=== PATIENT | male | born 1970 | race Caucasian/White ===

== ENCOUNTER 2024-02-21 12:01 | Emergency (ER) | payer OTHER ==
[~2024-02-21] VITALS: Ht 172.7 cm; Wt 95.0 kg
[2024-02-21 12:47] VITALS: BP 141/84; PULSE 82; RESP 18; TEMP 98.7; O2SAT 98
[2024-02-21] MEDS: HYDROcodone-ACET 10/325MG TAB PO ONE (13:37)
[2024-02-21] MEDS ORDERED: IBUP-1456 PO (13:58)
[2024-02-21] MEDS ORDERED: PRED20TA2 PO (13:58)
== END 2024-02-21 13:57 | disposition home or self-care (01) ==
LOC: ER 12:01
DX: M16.11 Unilateral primary osteoarthritis, right hip (principal); G89.29 Other chronic pain; M25.551 Pain in right hip
CPT/HCPCS: 73502

== ENCOUNTER 2024-06-27 10:28 | Emergency (ER) | payer OTHER ==
[~2024-06-27] VITALS: Ht 175.3 cm; Wt 90.2 kg
[~2024-06-27 10:28] MED LIST: IBUP-1456 PO; MELO15TA29 PO; PRED20TA2 PO
[2024-06-27 11:44] VITALS: BP 140/86; PULSE 112; RESP 17; TEMP 98.2; O2SAT 96
[2024-06-27] MEDS ORDERED: NAPR-746 PO (12:01)
== END 2024-06-27 12:18 | disposition home or self-care (01) ==
LOC: ER 10:28
DX: M70.22 Olecranon bursitis, left elbow (principal); Z79.899 Other long term (current) drug therapy

== ENCOUNTER 2024-08-10 17:36 | Emergency (ER) | payer OTHER ==
[~2024-08-10] VITALS: Ht 175.3 cm; Wt 95.0 kg
[~2024-08-10 17:36] MED LIST changes: +NAPR-746 PO
[2024-08-10 17:43] VITALS: PULSE 86
[2024-08-10 18:23] VITALS: BP 160/98; RESP 16; TEMP 97.8; O2SAT 98
--- NOTE | 2024-08-10 19:19 | ED.PDOC ---
HPI Comments This is a 53-year-old male presents to the ED chief complaint status post fall laceration to top of his patient states he was walking in the [place] parking lot tripped and hit his head on the pavement. Complaining of laceration to top of his head. Reports negative LOC denies neck pain back pain or any other known injury. Chief Complaint: Head Injury Time Seen by MD: 18:00 Primary Care Provider: NONE Reviewed Notes: Nurses Notes, Medications, Allergies Allergies: Coded Allergies: NO KNOWN ALLERGIES (Unverified , 02/21/24) Home Meds Active Scripts Prednisone (Prednisone) 20 Mg Tab, 40 MG PO DAILY, #20 TAB Prov:JAMIN CORTES 06/27/24 Naproxen (Naproxen) 500 Mg Tab, 500 MG PO BID, #30 TAB Prov:JAMIN CORTES 06/27/24 Meloxicam (Meloxicam) 15 Mg Tab, 1 TAB PO DAILY for 30 Days, #30 TAB 0 Refills Prov:EDUARD SCHULTZ NP 06/09/24 Prednisone (Prednisone) 20 Mg Tab, 40 MG PO DAILY, #20 TAB Prov:JAMIN CORTES 02/21/24 Ibuprofen (Ibuprofen) 800 Mg Tab, 1 TAB PO TID, #30 TAB Prov:JAMIN CORTES 02/21/24 Information Source: Patient Mode of Arrival: EMS Complexity: Simple Laceration Length (cm): 2 Past Medical History PAST MEDICAL HISTORY: Denies Surgical History: Denies all surgeries Family History Family History: Reviewed,noncontributory to illness Social History Smoker: Non-Smoker Alcohol: Denies ETOH Use Drugs: Denies Drug Use Lives In: Home Constitutional: denies: chills, diaphoresis, fatigue, fever, malaise, sweats, weakness, others EENTM: denies: blurred vision, double vision, ear bleeding, ear discharge, ear drainage, ear pain, ear ringing, eye pain, eye redness, hearing loss, mouth pain, mouth swelling, nasal discharge, nose bleeding, nose congestion, nose pain, photophobia, tearing, throat pain, throat swelling, voice changes, others Respiratory: denies: cough, hemoptysis, orthopnea, SOB at rest, shortness of breath, SOB with excertion, stridor, wheezing, others Cardiovascular: denies: chest pain, dizzy spells, diaphoresis, Dyspnea on exertion, edema, irregular heart beat, left arm pain, lightheadedness, palp itations, PND, syncope, others Gastrointestinal: denies: abdomen distended, abdominal pain, blood streaked bowels, constipated, diarrhea, dysphagia, difficulty swallowing, hematemesis, melena, nausea, poor appetite, poor fluid intake, rectal bleeding, rectal pain, vomiting, others Genitourinary: denies: burning, dysuria, flank pain, frequency, hematuria, incontinence, penile discharge, penile sore, pain, testicle pain, testicle swelling, urgency, others Neurological: denies: dizziness, fainting, headache, left sided numbness, left sided weakness, numbness, paresthesia, pre-existing deficit, right sided numbness, right sided weakness, seizure, speech problems, tingling, tremors, weakness, others Musculoskeletal: denies: back pain, gout, joint pain, joint swelling, muscle pain, muscle stiffness, neck pain, others Integumetry: reports: laceration (Top of scalp); denies: bruises, change in color, change in hair/nails, dryness, lesions, lumps, rash, others Allergic/Immunocompromised: denies: Difficulty Healing, Frequent Infections, Hives, Itching, others Hematologic/Lymphatic: denies: anemia, blood clots, easy bleeding, easy bruising, swollen glands, others Endocrine: denies: excessive hunger, excessive sweating, excessive thirst, excessive urination, flushing, intolerance to cold, intolerance to heat, unexplained weight gain, unexplained weight loss, others Psychiatric: denies: anxiety, bipolar disorder, depression, hopeless, panic disorder, schizophrenia, sleepless, suicidal, others Physical Exam General Appearance: No Apparent Distress, Normal HEENT: Pharynx Normal Neck: Full Range of Motion, Non-Tender Respiratory: Lungs Clear, No Respiratory Distress, Normal Breath Sounds Cardiovascular: No Murmur, Normal Peripheral Pulses, Regular Rate/Rhythm Breast Exam: Deferred Gastrointestinal: Non Tender, Soft Genitalia: Deferred Pelvic: Deferred Rectal: Deferred Extremities: Normal inspection, Normal range of motion Musculoskeletal : Apperance: Normal Neurologic: Alert, carton marker machine II-XII nml as Tested, No Motor Deficits, Normal Affect, Normal Mood, No Sensory Deficits Cerebellar Function: Normal Reflexes: Normal Skin: Dry, Lacerations (2 cm full-thickness laceration to top of scalp. Bleeding controlled.), Normal Color, Warm Lymphatic: No Adenopathy Was a procedure done? Was a procedure done?: Yes Sedation Sedation?: No Informed consent obtained: Yes Laceration Repair : Location Top of head scalp Length 2 cm Anesthetic: Lidocaine, With epi Laceration Repair Prep: Saline, Betadine Laceration Repair Wound Comple: epidermis/dermis repair Laceration Repair: [place] (5) Informed consent obtained: Yes Risks, benefits, and alternati: Yes Notes Patient tolerated procedure well minimal blood loss laceration with good approximation. Differential diagnosis Generic Laceration: Laceration, [place]ulsion X-Ray, Labs, Meds, VS Vital Signs Date Time Temp Pulse Resp B/P (MAP) Pulse Ox O2 Delivery O2 Flow Rate FiO2 08/10/24 18:23 16 98 Room Air 08/10/24 18:23 97.8 16 160/98 (118) 98 97.8 08/10/24 17:43 97.8 86 16 160/98 (118) 98 X-Ray, Labs, Meds, VS Comment See procedure note. Staple removal within 7-10 days as discussed. Follow up with your PCP in 2-3 days as necessary. ER precautions given for uncontrolled bleeding and infection. Patient agrees with discharge plan of care. Time of 1ST Reevaluation: 19:18 Reevaluation 1ST: Improved Patient Education/Counseling: Diagnosis, Treatment, Prognosis, Need For Follow Up Family Education/Counseling: No Family Present Departure 1 Departure Time of Disposition: 19:18 Impression: Primary Impression: Laceration of scalp Qualified Codes: S01.01XA - Laceration without foreign body of scalp, initial encounter Disposition: HOME / SELF CARE / HOMELESS Condition: Stable Additional Instructions: Staple removed within 7-10 business days. Return to the ER for increasing pain, uncontrolled bleeding, or signs and symptoms of infection as discussed. Discharged With: Self Critical Care Note Critical Care Time?: No Stability Stability form required: ARNODL Lynn Aug 10, 2024 19:19
[2024-08-10] MEDS: TETANUS-DIPTH-ACEL PERTUSSIS 0.5ML SYR Tdap IM ONE (19:33)
== END 2024-08-10 19:37 | disposition home or self-care (01) ==
LOC: EDBD 17:36 → ER 17:36
DX: S01.01XA Laceration without foreign body of scalp, initial encounter (principal); Z79.899 Other long term (current) drug therapy; W01.0XXA Fall on same level from slipping, tripping and stumbling without subsequent striking against object, initial encounter; Y93.01 Activity, walking, marching and hiking; Y92.89 Other specified places as the place of occurrence of the external cause; Y99.8 Other external cause status
CPT/HCPCS: 12001; 90471; 90715

== ENCOUNTER 2024-08-28 16:32 | Emergency (ER) | payer SELFPAY ==
[~2024-08-28] VITALS: Ht 170.2 cm; Wt 100.0 kg
[2024-08-28 16:32] VITALS: BP 168/79; PULSE 92; RESP 18; O2SAT 97
--- NOTE | 2024-08-28 17:05 | ED.PDOC ---
History of Present Illness HPI Comments 53 y.o male presents to the ED via EMS for a chief complaint of a generalized headache s/p huffing a spray pain can earlier today. Patient reports at this time, pain has subsided, does not want any medication and wants to go home. No other complaint noted. Time Seen by MD: 17:02 Primary Care Provider: CAYLA Herrera Notes: Nurses Notes, Housekeeper Child Care Notes, Allergies Allergies: Coded Allergies: NO KNOWN ALLERGIES (Unverified , 02/21/24) Home Meds Active Scripts Prednisone (Prednisone) 20 Mg Tab, 40 MG PO DAILY, #20 TAB Prov:JAMIN CORTES 06/27/24 Naproxen (Naproxen) 500 Mg Tab, 500 MG PO BID, #30 TAB Prov:JAMIN CORTES 06/27/24 Meloxicam (Meloxicam) 15 Mg Tab, 1 TAB PO DAILY for 30 Days, #30 TAB 0 Refills Prov:EDUARD SCHULTZ LAUNDRY OPERATOR 06/09/24 Prednisone (Prednisone) 20 Mg Tab, 40 MG PO DAILY, #20 TAB Prov:JAMIN CORTES 02/21/24 Ibuprofen (Ibuprofen) 800 Mg Tab, 1 TAB PO TID, #30 TAB Prov:JAMIN CORTES 02/21/24 Information Source: Patient, Emergency Med Personnel Mode of Arrival: EMS Severity: Moderate Timing: Hours Duration: Minutes Prehospital treatment: 12 Lead EKG Past Medical History PAST MEDICAL HISTORY: Denies Surgical History: Denies all surgeries Family History Family History: Reviewed,noncontributory to illness Social History Smoker: Non-Smoker Alcohol: Denies ETOH Use Drugs: Other (Patient is a huffer.) Lives In: Home Constitutional: denies: chills, diaphoresis, fatigue, fever, malaise, sweats, weakness, others EENTM: denies: blurred vision, double vision, ear bleeding, ear discharge, ear drainage, ear pain, ear ringing, eye pain, eye redness, hearing loss, mouth pain, mouth swelling, nasal discharge, nose bleeding, nose congestion, nose pain, photophobia, tearing, throat pain, throat swelling, voice changes, others Respiratory: denies: cough, hemoptysis, orthopnea, SOB at rest, shortness of breath, SOB with excertion, stridor, wheezing, others Cardiovascular: denies: chest pain, dizzy spells, diaphoresis, Dyspnea on exertion, edema, irregular heart beat, left arm pain, lightheadedness, palpitations, PND, syncope, others Gastrointestinal: denies: abdomen distended, abdominal pain, blood streaked bowels, constipated, diarrhea, dysphagia, difficulty swallowing, hematemesis, melena, nausea, poor appetite, poor fluid intake, rectal bleeding, rectal pain, vomiting, others Genitourinary: denies: burning, dysuria, flank pain, frequency, hematuria, incontinence, penile discharge, penile sore, pain, testicle pain, testicle swelling, urgency, others Neurological: reports: headache; denies: dizziness, fainting, left sided numbness, left sided weakness, numbness, paresthesia, pre-existing deficit, right sided numbness, right sided weakness, seizure, speech problems, tingling, tremors, weakness, others Musculoskeletal: denies: back pain, gout, joint pain, joint swelling, muscle pain, muscle stiffness, neck pain, others Integumetry: denies: bruises, change in color, change in hair/nails, dryness, laceration, lesions, lumps, rash, wounds, others Allergic/Immunocompromised: denies: Difficulty Healing, Frequent Infections, Hives, Itching, others Hematologic/Lymphatic: denies: anemia, blood clots, easy bleeding, easy bruising, swollen glands, others Endocrine: denies: excessive hunger, excessive sweating, excessive thirst, excessive urination, flushing, intolerance to cold, intolerance to heat, unexplained weight gain, unexplained weight loss, others Psychiatric: denies: anxiety, bipolar disorder, depression, hopeless, panic disorder, schizophrenia, sleepless, suicidal, others All Other Systems: Reviewed and Negative Physical Exam General Appearance: No Apparent Distress (Patient states his headache is mostly resolved and asked to go home.), Normal HEENT: Head (Unremarkable cranial evaluation. No signs of trauma. No skull depressions or deformities.), Normal ENT Inspection, Pharynx Normal, TMs Normal Neck: Full Range of Motion, Non-Tender, Normal, Normal Inspection Respiratory: Chest Non-Tender, Lungs Clear, No Accessory Muscle Use, No Respiratory Distress, Normal Breath Sounds Cardiovascular: No Edema, No JVD, No Murmur, No Gallop, Normal Peripheral Pulses, Regular Rate/Rhythm Breast Exam: Deferred Gastrointestinal: No Organomegaly, Non Tender, No Pulsatile Mass, Normal Bowel Sounds, Soft Genitalia: Deferred Pelvic: Deferred Rectal: Deferred Extremities: No calf tenderness, Normal capillary refill, Normal inspection, Normal range of motion, Non-tender, No pedal edema Musculoskeletal : Apperance: Normal Neurologic: Alert, high risk case manager II-XII nml as Tested, No Motor Deficits, Normal Affect, Normal Mood, No Sensory Deficits Cerebellar Function: Normal Reflexes: Normal Skin: Dry, Normal Color, Warm Lymphatic: No Adenopathy Was a procedure done? Was a procedure done?: No Differential Dx Considerations may include: Migraine, illicit inhaled drug use X-Ray, Labs, Meds, VS Comment Patient's symptoms are resolved at time of evaluation. Patient will be discharged home. I spent 10 minutes discussing the severe medical side effects of drug use as well as advising narcotics anonymous follow up. Patient states he will attempt to establish help. Time of 1ST Reevaluation: 17:15 Reevaluation 1ST: Improved Consultation: PCP, Other (Drug rehab) Patient Education/Counseling: Diagnosis, Treatment Family Education/Counseling: Diagnosis, Treatment, No Family Present Departure 1 Departure Time of Disposition: 17:15 Impression: Primary Impression: Inhales drugs Additional Impression: Headache Disposition: HOME / SELF CARE / HOMELESS Condition: Stable Additional Instructions: Patient has been advised to follow up with drug rehab for assistance in stopping inhaled drug use. Discharged With: Self, Friend Critical Care Note Critical Care Time?: No Stability Stability form required: No I personally scribed for PELON HOFFMANN PAC ([email or web address]) on 08/28/24 at 17:05. Electronically submitted by Joanna Santiago ([facility]). PELON HOFFMANN PAC Aug 28, 2024 17:05
== END 2024-08-28 19:14 | disposition home or self-care (01) ==
LOC: EDBD 16:32 → ER 16:32
DX: R51.9 Headache, unspecified (principal); F15.90 Other stimulant use, unspecified, uncomplicated; Z79.1 Long term (current) use of non-steroidal anti-inflammatories (NSAID); Z79.52 Long term (current) use of systemic steroids; Z79.899 Other long term (current) drug therapy

== ENCOUNTER 2024-10-26 16:18 | Emergency (ER) | payer SELFPAY ==
[~2024-10-26] VITALS: Ht 175.3 cm; Wt 86.3 kg
[2024-10-26 16:25] VITALS: BP 136/75; PULSE 108; RESP 18; O2SAT 98
--- NOTE | 2024-10-26 18:59 | ED.PDOC ---
Altered Mental Status HPI Comments 53 y.o male presents to the ED via EMS for an evaluation of inhalation. Patient reports inhaling a whole can of air dust today, states he has been trying to quit inhaling due to having headaches afterwards. Patient reports after inhaling a can a couple days ago, he fell backwards and hit the back of his head. No l oss of consciousness. Per EMS triage notes, patient was found altered down in a ferrari. Patient denies any nausea, vomiting, dizziness, chest pain or SOB. No other information provided. Chief Complaint: Inhalation Time Seen by MD: 17:58 Primary Care Provider: UNKNOWN Reviewed Notes: Nurses Notes, Outreach Specialist Notes, Medications, Allergies Allergies: Coded Allergies: NO KNOWN ALLERGIES (Unverified , 02/21/24) Home Meds Active Scripts Prednisone (Prednisone) 20 Mg Tab, 40 MG PO DAILY, #20 TAB Prov:JAMIN CORTES 06/27/24 Naproxen (Naproxen) 500 Mg Tab, 500 MG PO BID, #30 TAB Prov:JAMIN CORTES 06/27/24 Meloxicam (Meloxicam) 15 Mg Tab, 1 TAB PO DAILY for 30 Days, #30 TAB 0 Refills Prov:EDUARD SCHULTZ NP 06/09/24 Prednisone (Prednisone) 20 Mg Tab, 40 MG PO DAILY, #20 TAB Prov:JAMIN CORTES 02/21/24 Ibuprofen (Ibuprofen) 800 Mg Tab, 1 TAB PO TID, #30 TAB Prov:JAMIN CORTES 02/21/24 Information Source: Patient, Emergency Med Personnel Mode of Arrival: EMS Severity: Moderate Timing: Hours Duration: Since onset Quality: Decreased Alertness Recent: None Associated Signs and Symptoms: Headache Past Medical History PAST MEDICAL HISTORY: Denies Surgical History: Denies all surgeries Family History Family History: Reviewed,noncontributory to illness Social History Smoker: Non-Smoker Alcohol: Denies ETOH Use Drugs: Other Lives In: Home Constitutional: denies: chills, diaphoresis, fatigue, fever, malaise, sweats, weakness, others EENTM: denies: blurred vision, double vision, ear bleeding, ear discharge, ear drainage, ear pain, ear ringing, eye pain, eye redness, hearing loss, mouth pain, mouth swelling, nasal discharge, nose bleeding, nose congestion, nose pain, photophobia, tearing, throat pain, throat swelling, voice changes, others Respiratory: denies: cough, hemoptysis, orthopnea, SOB at rest, shortness of breath, SOB with excertion, stridor, wheezing, others Cardiovascular: denies: chest pain, dizzy spells, diaphoresis, Dyspnea on exertion, edema, irregular heart beat, left arm pain, lightheadedness, palpitations, PND, syncope, others Gastrointestinal: denies: abdomen distended, abdominal pain, blood streaked bowels, constipated, diarrhea, dysphagia, difficulty swallowing, hematemesis, melena, nausea, poor appetite, poor fluid intake, rectal bleeding, rectal pain, vomiting, others Genitourinary: denies: burning, dysuria, flank pain, frequency, hematuria, incontinence, penile discharge, penile sore, pain, testicle pain, testicle swelling, urgency, others Neurological: reports: headache; denies: dizziness, fainting, left sided numbness, left sided weakness, numbness, paresthesia, pre-existing deficit, right sided numbness, right sided weakness, seizure, speech problems, tingling, tremors, weakness, others Musculoskeletal: denies: back pain, gout, joint pain, joint swelling, muscle pain, muscle stiffness, neck pain, others Integumetry: denies: bruises, change in color, change in hair/nails, dryness, laceration, lesions, lumps, rash, wounds, others Allergic/Immunocompromised: denies: Difficulty Healing, Frequent Infections, Hives, Itching, others Hematologic/Lymphatic: denies: anemia, blood clots, easy bleeding, easy bruising, swollen glands, others Endocrine: denies: excessive hunger, excessive sweating, excessive thirst, excessive urination, flushing, intolerance to cold, intolerance to heat, u nexplained weight gain, unexplained weight loss, others Psychiatric: denies: anxiety, bipolar disorder, depression, hopeless, panic disorder, schizophrenia, sleepless, suicidal, others All Other Systems: Reviewed and Negative Physical Exam General Appearance: No Apparent Distress, Normal HEENT: Normal ENT Inspection, Pharynx Normal, TMs Normal, Other (Small hematoma to the occipital scalp, no open wounds, no significant tenderness to palpation) Neck: Full Range of Motion, Non-Tender, Normal, Normal Inspection Respiratory: Chest Non-Tender, Lungs Clear, No Accessory Muscle Use, No Respiratory Distress, Normal Breath Sounds Cardiovascular: No Edema, No JVD, No Murmur, No Gallop, Normal Peripheral Pulses, Regular Rate/Rhythm Breast Exam: Deferred Gastrointestinal: No Organomegaly, Non Tender, No Pulsatile Mass, Normal Bowel Sounds, Soft Genitalia: Deferred Pelvic: Deferred Rectal: Deferred Extremities: No calf tenderness, Normal capillary refill, Normal inspection, Normal range of motion, Non-tender, No pedal edema Musculoskeletal : Apperance: Normal Neurologic: Alert, quality control representative II-XII nml as Tested, No Motor Deficits, Normal Affect, Normal Mood, No Sensory Deficits Cerebellar Function: Normal Reflexes: Normal Skin: Dry, Normal Color, Warm Lymphatic: No Adenopathy Was a procedure done? Was a procedure done?: No Differential Diagnosis (ALOC) Differential Diagnosis: Dehydration, Closed Head Injury, Drug Overdose, ETOH Intoxication X-Ray, Labs, Meds, VS Vital Signs Date Time Temp Pulse Resp B/P (MAP) Pulse Ox O2 Delivery O2 Flow Rate FiO2 10/26/24 16:25 97.9 108 18 136/75 (95) 98 X-Ray, Labs, Meds, VS Comment 53-year-old male here today requesting evaluation of his head hematoma due to a fall two days ago in the setting of huffing. No other complaints at this time. Patient requesting a aspirin pill for his pain but otherwise does not want to do any blood work or CT scans of his head. Patient states that his friend is here to pick him up and he just wants his aspirin to go. I informed the patient that I would want to do a CT scan of his head to ensure that there was no evidence of bleed prior to giving him a medication like aspirin however I would be okay to give him Tylenol the patient refused and stated he would prefer to leave instead. Patient's signed AMA and ambulated out of the ER in no distress. Time of 1ST Reevaluation: 18:59 Reevaluation 1ST: Unchanged Patient Education/Counseling: Diagnosis, Treatment, Prognosis Family Education/Counseling: No Family Present Departure 1 Departure Time of Disposition: 19:13 Impression: Primary Impression: Inhales drugs Additional Impressions: Headache Traumatic hematoma of head Disposition: LEFT AGAINST MEDICAL ADVICE Condition: Guarded Critical Care Note Critical Care Time?: No Stability Stability form required: No I personally scribed for IMTIAZ MACIEL MD ([email or web address]) on 10/26/24 at 18:59. Electronically submitted by Joanna Santiago ([facility]). IMTIAZ MACIEL MD Oct 26, 2024 18:59
== END 2024-10-26 18:07 | disposition left against medical advice (07) ==
LOC: EDBD 16:18 → ER 16:28
DX: S00.83XA Contusion of other part of head, initial encounter (principal); X58.XXXA Exposure to other specified factors, initial encounter; Y93.89 Activity, other specified; Y92.89 Other specified places as the place of occurrence of the external cause; Y99.8 Other external cause status

== ENCOUNTER 2024-12-25 17:37 | Emergency (ER) | payer OTHER, MEDICAID ==
[~2024-12-25] VITALS: Ht 177.8 cm; Wt 91.0 kg
[2024-12-25 17:49] VITALS: BP 159/89; PULSE 100; TEMP 98.2
[2024-12-25 17:52] VITALS: RESP 20; O2SAT 94
--- NOTE | 2024-12-25 17:54 | ED.PDOC ---
History of Present Illness HPI Comments 54 y/o M, CTA presents to the ED for CC of inhalation. EMS reports, patient was seen by bystanders to be sniffing aerosol cans and acting disoriented. EMS comments, that they physical removed the aerosol can out of patients hand upon arrival to scene. Patient states, "I was just trying to get high". Patient denies suicidal ideation, homicidal ideation, auditory hallucinations, or visual hallucinations. Time Seen by MD: 17:50 Primary Care Provider: UNKNOWN Reviewed Notes: Nurses Notes, Manager Configuration Notes, Medications, Allergies Allergies: Coded Allergies: NO KNOWN ALLERGIES (Unverified , 02/21/24) Home Meds Active Scripts Prednisone (Prednisone) 20 Mg Tab, 40 MG PO DAILY, #20 TAB Prov:JAMIN CORTES 06/27/24 Naproxen (Naproxen) 500 Mg Tab, 500 MG PO BID, #30 TAB Prov:JAMIN CORTES 06/27/24 Meloxicam (Meloxicam) 15 Mg Tab, 1 TAB PO DAILY for 30 Days, #30 TAB 0 Refills Prov:EDUARD SCHULTZ NP 06/09/24 Prednisone (Prednisone) 20 Mg Tab, 40 MG PO DAILY, #20 TAB Prov:JAMIN CORTES 02/21/24 Ibuprofen (Ibuprofen) 800 Mg Tab, 1 TAB PO TID, #30 TAB Prov:JAMIN CORTES 02/21/24 Information Source: Patient, Emergency Med Personnel Mode of Arrival: EMS Severity: Mild Timing: Minutes Duration: Since onset Prehospital treatment: None Past Medical History PAST MEDICAL HISTORY: Denies Surgical History: Denies all surgeries Family History Family History: Reviewed,noncontributory to illness Social History Smoker: Non-Smoker Alcohol: Denies ETOH Use Drugs: Other Lives In: Home Constitutional: denies: chills, diaphoresis, fatigue, fever, malaise, sweats, weakness, others EENTM: denies: blurred vision, double vision, ear bleeding, ear discharge, ear drainage, ear pain, ear ringing, eye pain, eye redness, hearing loss, mouth pain, mouth swelling, nasal discharge, nose bleeding, nose congestion, nose pain, photophobia, tearing, throat pain, throat swelling, voice changes, others Respiratory: denies: cough, hemoptysis, orthopnea, SOB at rest, shortness of breath, SOB with excertion, stridor, wheezing, others Cardiovascular: denies: chest pain, dizzy spells, diaphoresis, Dyspnea on exertion, edema, irregular heart beat, left arm pain, lightheadedness, palpitations, PND, syncope, others Gastrointestinal: denies: abdomen distended, abdominal pain, blood streaked bowels, constipated, diarrhea, dysphagia, difficulty swallowing, hematemesis, melena, nausea, poor appetite, poor fluid intake, rectal bleeding, rectal pain, vomiting, others Genitourinary: denies: burning, dysuria, flank pain, frequency, hematuria, incontinence, penile discharge, penile sore, pain, testicle pain, testicle swelling, urgency, others Neurological: denies: dizziness, fainting, headache, left sided numbness, left sided weakness, numbness, paresthesia, pre-existing deficit, right sided numbness, right sided weakness, seizure, speech problems, tingling, tremors, weakness, others Musculoskeletal: denies: back pain, gout, joint pain, joint swelling, muscle pain, muscle stiffness, neck pain, others Integumetry: denies: bruises, change in color, change in hair/nails, dryness, laceration, lesions, lumps, rash, wounds, others Allergic/Immunocompromised: denies: Difficulty Healing, Frequent Infections, Hives, Itching, others Hematologic/Lymphatic: denies: anemia, blood clots, easy bleeding, easy bruising, swollen glands, others Endocrine: denies: excessive hunger, excessive sweating, excessive thirst, excessive urination, flushing, intolerance to cold, intolerance to heat, unexplained weight gain, unexplained weight loss, others Psychiatric: denies: anxiety, bipolar disorder, depression, hopeless, panic disorder, schizophrenia, sleepless, suicidal, others All Other Systems: Reviewed and Negative Physical Exam General Appearance: No Apparent Distress HEENT: Normal ENT Inspection, Pharynx Normal, TMs Normal Neck: Full Range of Motion, Non-Tender, Normal, Normal Inspection Respiratory: Chest Non-Tender, Lungs Clear, No Accessory Muscle Use, No Respiratory Distress, Normal Breath Sounds Cardiovascular: No Edema, No JVD, No Murmur, No Gallop, Normal Peripheral Pulses, Regular Rate/Rhythm Breast Exam: Deferred Gastrointestinal: No Organomegaly, Non Tender, No Pulsatile Mass, Normal Bowel Sounds, Soft Genitalia: Deferred Pelvic: Deferred Rectal: Deferred Extremities: No calf tenderness, Normal capillary refill, Normal inspection, Normal range of motion, Non-tender, No pedal edema Musculoskeletal : Apperance: Normal Neurologic: Alert, 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 Was a procedure done?: No Differential Dx Considerations may include: Generalized weakness, electrolyte imbalance, inhalation, substance abuse X-Ray, Labs, Meds, VS Vital Signs Date Time Temp Pulse Resp B/P (MAP) Pulse Ox O2 Delivery O2 Flow Rate FiO2 12/25/24 17:52 20 94 Room Air* 0 21 12/25/24 17:49 98.2 100 20 159/89 (112) 94 98.2 The patient states that he wants to leave upon arrival The patient called his in his came and picked him up. The patient was signed out AMA The patient's vital signs have remained stable The patient was not suicidal or homicidal at this time It seems that the patient was done this before We did give him some substance abuse counseling. Time of 1ST Reevaluation: 18:20 Reevaluation 1ST: Unchanged Patient Education/Counseling: Diagnosis, Treatment Family Education/Counseling: No Family Present Departure 1 Departure Time of Disposition: 18:01 Impression: Primary Impression: Inhales drugs Disposition: 07 LEFT AGAINST MEDICAL ADVICE Condition: Fair Critical Care Note Critical Care Time?: No Stability Stability form required: No Heart Score Heart Score: Heart Score Response (Comments) Value History N/A 0 EKG N/A 0 Age N/A 0 Risk Factors N/A 0 Troponin N/A 0 Total 0 I personally scribed for MARTI GIBBONS MD ([email or web address]) on 12/25/24 at 17:54. Electronically submitted by Shadia Sanchez ([email or web address]). MARTI GIBBONS MD Dec 25, 2024 17:54
--- NOTE | 2024-12-26 13:13 | ECG ---
[facility] Test Date: 2024-12-25 Test Time: 17:36:57 Pat Name: MIKHAIL DOVER Department: ED Room: Gender: M Legal Office Administrator: JOSÉ LUIS : 1970 Requested By: MARTI GIBBONS Order Number: [id number] Reading MD: Anton Park Measurements Intervals [place] Rate: 101 P: 35 ME: 148 QRS: -22 QRSD: 97 T: 2 QT: 350 QTc: 454 Interpretive Statements Sinus tachycardia Borderline left axis deviation Low voltage, precordial leads Abnormal R-wave progression, late transition Electronically Signed On 12-26-2024 18:49:46 PDT by Anton Park Please click the below link to view image of tracing.
== END 2024-12-25 17:54 | disposition left against medical advice (07) ==
LOC: ER 17:37 → EDBD 17:37 → ER 17:54
DX: F18.90 Inhalant use, unspecified, uncomplicated (principal); Z79.52 Long term (current) use of systemic steroids; Z79.1 Long term (current) use of non-steroidal anti-inflammatories (NSAID); Z79.899 Other long term (current) drug therapy
CPT/HCPCS: 93005

== ENCOUNTER 2025-03-18 21:40 | Emergency (ER) | payer OTHER, MEDICAID ==
[~2025-03-18] VITALS: Ht 177.8 cm; Wt 90.9 kg
[2025-03-18 21:50] VITALS: BP 135/71; PULSE 98; RESP 15; TEMP 98.2; O2SAT 96
--- NOTE | 2025-03-18 21:57 | ED.PDOC ---
HPI Comments This is a 54 year old male CAT presenting to the ED with chief complaint of laceration. EMS reports that the patient was found in front of a [employer] holding the back of his head, noting a 1cm laceration. EMS relays that the patient does not remember falling or hitting his head, just that it hurts. EMS states an employee at the [employer] came out to inform them that the patient has been buying aerosol cleaning sprays throughout the day, believing he has been inhaling them, possibly causing him to pass out and hit the back of his head. Patient does not admit to any inhaling of the sprays. Patient denies any dizziness, N/V, chest pain, back pain, or further lacerations. Chief Complaint: Head Injury Time Seen by MD: 21:53 Primary Care Provider: UNKNOWN Reviewed Notes: Nurses Notes, Press Brake Operator Notes, Medications, Allergies Allergies: Coded Allergies: NO KNOWN ALLERGIES (Unverified , 02/21/24) Home Meds Active Scripts Prednisone (Prednisone) 20 Mg Tab, 40 MG PO DAILY, #20 TAB Prov:JAMIN CORTES 06/27/24 Naproxen (Naproxen) 500 Mg Tab, 500 MG PO BID, #30 TAB Prov:JAMIN CORTES 06/27/24 Meloxicam (Meloxicam) 15 Mg Tab, 1 TAB PO DAILY for 30 Days, #30 TAB 0 Refills Prov:EDUARD SCHULTZ NP 06/09/24 Prednisone (Prednisone) 20 Mg Tab, 40 MG PO DAILY, #20 TAB Prov:JAMIN CORTES 02/21/24 Ibuprofen (Ibuprofen) 800 Mg Tab, 1 TAB PO TID, #30 TAB Prov:JAMIN CORTES 02/21/24 Information Source: Patient, Emergency Med Personnel Mode of Arrival: EMS Severity: Mild Severity of Laceration: Controlled Bleeding Complexity: Simple Timing: Hours Prehospital treatment: None Laceration Location: Head Mechanism: Fall Last Tetanus: Unknown Laceration Length (cm): 1 Skin Type: Linear Depth of Injury: SQ Tendon Injury: 0% Capillary Refill: < 3 seconds Tender: Mild Discharge: Serosanguinous Erythema: Localized to Wound Edges Past Medical History PAST MEDICAL HISTORY: Denies Surgical History: Denies all surgeries Family History Family History: Reviewed,noncontributory to illness Social History Smoker: Non-Smoker Alcohol: Denies ETOH Use Drugs: Other Lives In: Home Constitutional: denies: chills, diaphoresis, fatigue, fever, malaise, sweats, weakness, others EENTM: denies: blurred vision, double vision, ear bleeding, ear discharge, ear drainage, ear pain, ear ringing, eye pain, eye redness, hearing loss, mouth pain, mouth swelling, nasal discharge, nose bleeding, nose congestion, nose pain, photophobia, tearing, throat pain, throat swelling, voice changes, others Respiratory: denies: cough, hemoptysis, orthopnea, SOB at rest, shortness of breath, SOB with excertion, stridor, wheezing, others Cardiovascular: denies: chest pain, dizzy spells, diaphoresis, Dyspnea on exertion, edema, irregular heart beat, left arm pain, lightheadedness, palpitations, PND, syncope, others Gastrointestinal: denies: abdomen distended, abdominal pain, blood streaked bowels, constipated, diarrhea, dysphagia, difficulty swallowing, hematemesis, melena, nausea, poor appetite, poor fluid intake, rectal bleeding, rectal pain, vomiting, others Genitourinary: denies: burning, dysuria, flank pain, frequency, hematuria, incontinence, penile discharge, penile sore, pain, testicle pain, testicle swelling, urgency, others Neurological: denies: dizziness, fainting, headache, left sided numbness, left sided weakness, numbness, paresthesia, pre-existing deficit, right sided numbness, right sided weakness, seizure, speech problems, tingling, tremors, weakness, others Musculoskeletal: denies: back pain, gout, joint pain, joint swelling, muscle pain, muscle stiffness, neck pain, others Integumetry: reports: laceration; denies: bruises, change in color, change in hair/nails, dryness, lesions, lumps, rash, wounds, others Allergic/Immunocompromised: denies: Difficulty Healing, Frequent Infections, Hives, Itching, others Hematologic/Lymphatic: denies: anemia, blood clots, easy bleeding, easy bruising, swollen glands, others Endocrine: denies: excessive hunger, excessive sweating, excessive thirst, excessive urination, flushing, intolerance to cold, intolerance to heat, unexplained weight gain, unexplained weight loss, others Psychiatric: denies: anxiety, bipolar disorder, depression, hopeless, panic disorder, schizophrenia, sleepless, suicidal, others All Other Systems: Reviewed and Negative Physical Exam General Appearance: No Apparent Distress, Normal HEENT: Normal ENT Inspection, Pharynx Normal, TMs Normal Neck: Full Range of Motion, Non-Tender, Normal, Normal Inspection Respiratory: Chest Non-Tender, Lungs Clear, No Accessory Muscle Use, No Respiratory Distress, Normal Breath Sounds Cardiovascular: No Edema, No JVD, No Murmur, No Gallop, Normal Peripheral Pulses, Regular Rate/Rhythm Breast Exam: Deferred Gastrointestinal: No Organomegaly, Non Tender, No Pulsatile Mass, Normal Bowel Sounds, Soft Genitalia: Deferred Pelvic: Deferred Rectal: Deferred Extremities: No calf tenderness, Normal capillary refill, Normal inspection, Normal range of motion, Non-tender, No pedal edema Musculoskeletal : Apperance: Normal Neurologic: Alert, 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 Was a procedure done?: Yes Sedation Sedation?: No Laceration Repair : Location [place] of scalp Length 1cm Anesthetic: Nothing Laceration Repair Prep: Saline, Manual Scrub Laceration Repair Wound Comple: subcut tissue repair Laceration Repair: [place] (1) Informed consent obtained: Yes Risks, benefits, and alternati: Yes Differential diagnosis Generic Laceration: Laceration X-Ray, Labs, Meds, VS Vital Signs Date Time Temp Pulse Resp B/P (MAP) Pulse Ox O2 Delivery O2 Flow Rate FiO2 03/18/25 21:50 98.2 98 15 135/71 (92) 96 98.2 X-Ray, Labs, Meds, VS Comment Imaging: X-rays and CT scans were reviewed and interpreted by this provider, imaging shows no fractures and no pathological disease. Pending radiology review. Laboratory: Labs reviewed and interpreted by this provider. No significant abnormalities noted. Patient has prior medical visits reviewed. Med reconciliation performed Vital signs reviewed Time of 1ST Reevaluation: 22:53 Reevaluation 1ST: Improved Patient Education/Counseling: Diagnosis, Treatment, Need For Follow Up (Follow up with PCP in the next 2-4 days. Return to emergency department the next 7-10 days for staple removal.) Family Education/Counseling: No Family Present Departure 1 Departure Time of Disposition: 23:29 Impression: Primary Impression: Laceration of scalp Qualified Codes: S01.01XA - Laceration without foreign body of scalp, initial encounter Disposition: HOME / SELF CARE / HOMELESS Condition: Stable Discharged With: Self Critical Care Note Critical Care Time?: No Stability Stability form required: No Heart Score Heart Score: Heart Score Response (Comments) Value History N/A 0 EKG N/A 0 Age N/A 0 Risk Factors N/A 0 Troponin N/A 0 Total 0 I personally scribed for JAYNE GUARDADO ([email or web address]) on 03/18/25 at 21:57. Electronically submitted by Carl Foote ([email or web address]). JAYNE GUARDADO Mar 18, 2025 21:57
--- NOTE | 2025-03-18 23:19 | DVH ---
CT BRAIN WITHOUT CONTRAST HISTORY: fall TECHNIQUE: Axial scans were obtained from the skull base through the vertex without contrast. [place] l and coronal reformats were generated. One or more of the following radiation dose reduction technPerceptual Networks ues were used for this examination: automated exposure control, adjustment of the mA and/or kV accord ing to patient size, use of iterative reconstruction technique. COMPARISON: None FINDINGS: No acute intracranial hemorrhage or evidence of large vessel territorial infarction identified at thi s time. No midline shift. The basilar cisterns are patent. Tiny right maxillary sinus mucosal polyp versus retention cyst. The visualized paranasal sinuses and mastoid air cells are otherwise grossly clear. No displaced calvarial fracture is identified. Occipital scalp laceration with skin zi. IMPRESSION: No acute intracranial findings. Occipital scalp laceration.
== END 2025-03-18 23:31 | disposition home or self-care (01) ==
LOC: EDBD 21:40 → ER 21:44
DX: S01.01XA Laceration without foreign body of scalp, initial encounter (principal); R42 Dizziness and giddiness; W19.XXXA Unspecified fall, initial encounter; Y93.89 Activity, other specified; Y92.89 Other specified places as the place of occurrence of the external cause; Y99.8 Other external cause status
CPT/HCPCS: 12001; 70450

== ENCOUNTER 2025-03-23 14:02 | Emergency (ER) | payer OTHER, MEDICAID ==
[~2025-03-23] VITALS: Ht 177.8 cm; Wt 97.0 kg
[2025-03-23 14:36] VITALS: BP 126/76; PULSE 104; RESP 16; TEMP 98; O2SAT 94
--- NOTE | 2025-03-23 15:12 | ED.PDOC ---
History of Present Illness(SKN HPI Comments 54-year-old male presents with a chief complaint of suture (staple) removal. Patient reports that he was here 5 days ago and had zi placed. Patient had zi placed on the posterior occipital portion of his head. Chief Complaint: Suture Removal Time Seen by MD: 14:46 Primary Care Provider: UNKNOWN History of Present Illness: Nurses Notes, Medications, Allergies Allergies: Coded Allergies: NO KNOWN ALLERGIES (Unverified , 02/21/24) Home Meds Active Scripts Prednisone (Prednisone) 20 Mg Tab, 40 MG PO DAILY, #20 TAB Prov:JAMIN CORTES 06/27/24 Naproxen (Naproxen) 500 Mg Tab, 500 MG PO BID, #30 TAB Prov:JAMIN CORTES 06/27/24 Meloxicam (Meloxicam) 15 Mg Tab, 1 TAB PO DAILY for 30 Days, #30 TAB 0 Refills Prov:EDUARD SCHULTZ DISTRICT LOSS PREVENTION MANAGER 06/09/24 Prednisone (Prednisone) 20 Mg Tab, 40 MG PO DAILY, #20 TAB Prov:JAMIN CORTES 02/21/24 Ibuprofen (Ibuprofen) 800 Mg Tab, 1 TAB PO TID, #30 TAB Prov:JAMIN CORTES 02/21/24 Information Source: Patient Mode of Arrival: Ambulatory Severity: Moderate Timing: Days Duration: Since onset Prehospital treatment: None Location: Head Mechanism: Preceding Wound Wound Type: Abrasion Past Medical History PAST MEDICAL HISTORY: Denies Surgical History: Denies all surgeries Family History Family History: Reviewed,noncontributory to illness Social History Smoker: Non-Smoker Alcohol: Denies ETOH Use Drugs: Other Lives In: Home Constitutional: denies: chills, diaphoresis, fatigue, fever, malaise, sweats, weakness, others EENTM: denies: blurred vision, double vision, ear bleeding, ear discharge, ear drainage, ear pain, ear ringing, eye pain, eye redness, hearing loss, mouth pain, mouth swelling, nasal discharge, nose bleeding, nose congestion, nose pain, photophobia, tearing, throat pain, throat swelling, voice changes, others Respiratory: denies: cough, hemoptysis, orthopnea, SOB at rest, shortness of breath, SOB with excertion, stridor, wheezing, others Cardiovascular: denies: chest pain, dizzy spells, diaphoresis, Dyspnea on exertion, edema, irregular heart beat, left arm pain, lightheadedness, palpitations, PND, syncope, others Gastrointestinal: denies: abdomen distended, abdominal pain, blood streaked bowels, constipated, diarrhea, dysphagia, difficulty swallowing, hematemesis, melena, nausea, poor appetite, poor fluid intake, rectal bleeding, rectal pain, vomiting, others Genitourinary: denies: burning, dysuria, flank pain, frequency, hematuria, incontinence, penile discharge, penile sore, pain, testicle pain, testicle swelling, urgency, others Neurological: denies: dizziness, fainting, headache, left sided numbness, left sided weakness, numbness, paresthesia, pre-existing deficit, right sided numbness, right sided weakness, seizure, speech problems, tingling, tremors, weakness, others Musculoskeletal: denies: back pain, gout, joint pain, joint swelling, muscle pain, muscle stiffness, neck pain, others Integumetry: denies: bruises, change in color, change in hair/nails, dryness, laceration, lesions, lumps, rash, wounds, others Allergic/Immunocompromised: denies: Difficulty Healing, Frequent Infections, Hives, Itching, others Hematologic/Lymphatic: denies: anemia, blood clots, easy bleeding, easy bruising, swollen glands, others Endocrine: denies: excessive hunger, excessive sweating, excessive thirst, excessive urination, flushing, intolerance to cold, intolerance to heat, unexplained weight gain, unexplained weight loss, others Psychiatric: denies: anxiety, bipolar disorder, depression, hopeless, panic disorder, schizophrenia, sleepless, suicidal, others All Other Systems: Reviewed and Negative ( PER HPI) Physical Exam General Appearance: No Apparent Distress, Normal HEENT: Normal ENT Inspection, Pharynx Normal, TMs Normal Neck: Full Range of Motion, Non-Tender, Normal, Normal Inspection Respiratory: Chest Non-Tender, Lungs Clear, No Accessory Muscle Use, No Respiratory Distress, Normal Breath Sounds Cardiovascular: No Edema, No JVD, No Murmur, No Gallop, Normal Peripheral Pulses, Regular Rate/Rhythm Breast Exam: Deferred Gastrointestinal: No Organomegaly, Non Tender, No Pulsatile Mass, Normal Bowel Sounds, Soft Genitalia: Deferred Pelvic: Deferred Rectal: Deferred Extremities: No calf tenderness, Normal capillary refill, Normal inspection, Normal range of motion, Non-tender, No pedal edema Musculoskeletal : Apperance: Normal Neurologic: Alert, 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 Was a procedure done?: No Differential Diagnosis (INTG) Differential Diagnosis: Other X-Ray, Labs, Meds, VS Vital Signs Date Time Temp Pulse Resp B/P (MAP) Pulse Ox O2 Delivery O2 Flow Rate FiO2 03/23/25 14:36 98.0 104 16 126/76 (93) 94 98.0 X-Ray, Labs, Meds, VS Comment 54-year-old male presents for suture removal. No other complaint. After ROS physical examination there were no signs of infection. No signs of cellulitis. No signs of abscess formation. Alcohol swab used to clean area thoroughly. Used sterile suture removal kit to remove sutures. Clean, dry, intact. No discharge seen. Education provided to keep area clean and dry. If gets soiled, use soap and water to clean. Watch out for signs and symptoms of infection including fever, chills, yellow or green discharge, increased pain, swelling etc. Time of 1ST Reevaluation: 15:28 Reevaluation 1ST: Improved Patient Education/Counseling: Diagnosis, Treatment, Prognosis Family Education/Counseling: No Family Present SEPSIS Sepsis Screen Date sepsis recognized/suspect: Mar 23, 2025 Time Sepsis recognized/suspect: 1415 Recent Procedure: No On Antibiotic Therapy: No Respiratory Rate >20: No Heart Rate >90: Yes Temp<36 C (96.8 F) or >38.3 C: No SBP <90 or MAP <65 mmHG: No New Acute Mental Status Change: No Is the patient on CPAP, BIPAP,: No Vital Signs Date Time Temp Pulse Resp B/P (MAP) Pulse Ox O2 Delivery O2 Flow Rate FiO2 03/23/25 14:36 98.0 104 16 126/76 (93) 94 98.0 Departure 1 Departure Time of Disposition: 15:11 Impression: Primary Impression: Removal of staple Disposition: HOME / SELF CARE / HOMELESS Condition: Stable Critical Care Note Critical Care Time?: No Stability Stability form required: No Heart Score Heart Score: Heart Score Response (Comments) Value History N/A 0 EKG N/A 0 Age N/A 0 Risk Factors N/A 0 Troponin N/A 0 Total 0 I personally scribed for EDUARD SCHULTZ NP ([email or web address]) on 03/23/25 at 15:29. Electronically submitted by Lionel Owens ([email or web address]). EDUARD SCHULTZ NP Mar 23, 2025 15:12
== END 2025-03-23 17:14 | disposition home or self-care (01) ==
LOC: ER 14:02
DX: S01.01XD Laceration without foreign body of scalp, subsequent encounter (principal); X58.XXXD Exposure to other specified factors, subsequent encounter

== ENCOUNTER 2025-07-22 12:46 | Inpatient (IN) | payer OTHER, MEDICAID ==
[~2025-07-22] VITALS: Ht 175.3 cm; Wt 102.3 kg
[2025-07-22] MEDS: CLINDAMYCIN 900MG IV 50 ML IV ONE (18:30)
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
[2025-07-22 18:44] LABS: Hematocrit 46.1 % (41.0-53.0); Hemoglobin 15.7 g/dL (13.5-17.5); Mean Corpuscular Hemoglobin 31.0 pg (28.0-32.0); Mean Corpuscular Volume 91.4 fL (80.0-100.0); Nucleated Red Blood Cells % 0.0 %
[2025-07-22 18:51] LABS: Chloride 102 mmol/L (98-107); Potassium 4.5 mmol/L (3.5-5.1); Sodium 139 mmol/L (136-145)
[2025-07-22 18:52] LABS: Anion Gap 10 (5-15); Calcium 10.0 mg/dL (8.7-10.4); Carbon Dioxide 27 mmol/L (20-31)
[2025-07-22 18:57] LABS: BUN/Creatinine Ratio 15.8 (10.0-20.0); Blood Urea Nitrogen 19 mg/dL (9-23)
[2025-07-22 19:01] LABS: Glucose 107 mg/dL (74-106)
[2025-07-22] MEDS: ENOXAPARIN SOD 100 MG/1 ML SYRINGE SC ONE ×2 (19:15→20:00)
--- NOTE | 2025-07-22 19:28 | DVH ---
BILATERAL LOWER EXTREMITY VENOUS DUPLEX REASON FOR EXAMINATION: bilateral calf pain. Calf redness. COMPARISON: None TECHNIQUE: Using real-time freeze-frame technique with a high-frequency transducer, multiple longitu dinal and transverse sections were obtained. Simultaneous color flow and spectral Doppler imaging wa s performed. The deep veins from the popliteal fossa to the groin were evaluated. FINDINGS: There is adequate visualization of the deep venous system. The bilateral common femoral ve ins and saphenofemoral junctions are compressible and demonstrate normal doppler flow and phasicity. There is occlusive thrombus throughout the length of the right femoral vein. There is no intraluminal thrombus in the right popliteal vein. No intraluminal thrombus is identified in the deep veins of the left lower extremity. The left lower extremity deep veins demonstrate normal Doppler flow and phasicity. IMPRESSION: Occlusive deep venous thrombosis of the right femoral vein. No DVT identified in the left lower extremity. MALCOLM Glynn, was informed of the findings by the stripping and booking machine operator at the conclusion of the exam.
[2025-07-22 19:30] VITALS: PULSE 69; RESP 15; O2SAT 96
[2025-07-22] MEDS ORDERED: HYDROcodone-ACET 5/325MG TAB PO PRN (19:45)
[2025-07-22] MEDS ORDERED: ONDANSETRON HCL 4 MG/2 ML VIAL IV PRN (19:45)
[2025-07-22] MEDS ORDERED: ACETAMINOPHEN 325 MG TAB PO PRN (19:45)
[2025-07-22 20:45] VITALS: BP 110/72; PULSE 74; RESP 18; TEMP 98; O2SAT 98
[2025-07-22 21:30] VITALS: PULSE 64; RESP 18; O2SAT 96
[2025-07-22 23:10] VITALS: BP 110/72; PULSE 74; RESP 18; TEMP 98; O2SAT 98
[2025-07-23] VITALS (8 sets, daily range): BP systolic 108–152; BP diastolic 72–95; PULSE 64–97; RESP 16–20; TEMP 97.6–98.5; O2SAT 94–98
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
[2025-07-23] MEDS: CLINDAMYCIN 600MG IV 50 ML IV SCH (05:31)
[2025-07-23 05:58] LABS: Hematocrit 45.1 % (41.0-53.0); Hemoglobin 15.6 g/dL (13.5-17.5); Mean Corpuscular Hemoglobin 31.5 pg (28.0-32.0); Mean Corpuscular Volume 91.3 fL (80.0-100.0); Nucleated Red Blood Cells % 0.1 %
[2025-07-23 06:07] LABS: Chloride 105 mmol/L (98-107); Potassium 4.4 mmol/L (3.5-5.1); Sodium 142 mmol/L (136-145)
[2025-07-23 06:08] LABS: Anion Gap 9 (5-15); Carbon Dioxide 28 mmol/L (20-31)
[2025-07-23 06:09] LABS: Calcium 9.2 mg/dL (8.7-10.4)
[2025-07-23 06:13] LABS: Glucose 94 mg/dL (74-106)
[2025-07-23 06:14] LABS: BUN/Creatinine Ratio 9.8 (10.0-20.0); Blood Urea Nitrogen 12 mg/dL (9-23)
[2025-07-23 06:20] LABS: INR 1.04 (0.9-1.15); Partial Thromboplastin Time 28.5 SEC (24.5-34.5); Prothrombin Time 11.0 sec (9.3-11.8)
[2025-07-23 06:54] LABS: Hepatitis B Surface Antigen Negative (Negative); Hepatitis C Antibody Negative (Negative)
[2025-07-23] MEDS: ENOXAPARIN SOD 100 MG/1 ML SYRINGE SC SCH (09:58)
[2025-07-23] MEDS ORDERED: VANCOMYCIN PER PHARMACY 0 MG IV SCH (13:30)
[2025-07-23] MEDS: CEFEPIME 1GM/50ML 50 ML IV SCH (14:18)
[2025-07-23] MEDS: VANCOMYCIN 1GM/250ML KIT 250 ML IV ONE (18:38)
[2025-07-24 01:00] VITALS: BP 113/70; PULSE 66; RESP 17; TEMP 98.2; O2SAT 95
[2025-07-24 02:00] VITALS: BP 113/70; PULSE 66; RESP 17; TEMP 98.2; O2SAT 95
[2025-07-24 05:00] VITALS: BP 128/66; PULSE 81; RESP 16; TEMP 96.6; O2SAT 96
[2025-07-24 08:00] VITALS: PULSE 69; RESP 17; O2SAT 97
[2025-07-24 09:00] VITALS: BP 128/72; PULSE 69; RESP 17; TEMP 98; O2SAT 97
[2025-07-24] MEDS: VANCOMYCIN 1GM/250ML KIT 250 ML IV SCH (10:00)
[2025-07-24] MEDS: APIXABAN 5 MG TAB PO SCH (10:52)
--- NOTE | 2025-07-24 11:13 | DVHPN2 ---
Subjective Still complains of pain and swelling in both legs Changes from previous H/P or p: Changes Objective Vitals Vital Signs Date Time Temp Pulse Resp B/P (MAP) Pulse Ox O2 Delivery O2 Flow Rate FiO2 07/23/25 09:28 98.1 70 18 117/75 (89) 95 98.1 07/23/25 08:00 Room Air* 0 21 Intake/Output Intake and Output 07/23/25 07:00 Intake Total 0 ml Balance 0 ml Intake Oral 0 ml # Voids 2 General Appearance: Alert, Oriented X3, Cooperative Lungs: Clear to auscultation, Normal air movement Cardiovascular: Regular rate, Normal S1, Normal S2 Abdomen: Normal bowel sounds, Soft Extremities: Other (1+ edema bilaterally) Medications Current Medications Medications Dose Ordered Sig/Jay Route Start Time Stop Time Status Last Admin Dose Admin Clindamycin Phosphate 50 ml @ 50 mls/hr Q8HR IV 07/23/25 06:00 07/23/25 05:31 50 MLS/HR Enoxaparin Sodium 100 mg Q12HR SC 07/23/25 10:00 07/23/25 09:58 100 MG Ceftriaxone Sodium 50 ml @ 100 mls/hr DAILY@09 IV 07/23/25 09:00 07/23/25 09:14 100 MLS/HR Acetaminophen/ Hydrocodone Bitart 1 tab Q4HP PRN PO 07/22/25 19:45 Ondansetron HCl 4 mg Q4HP PRN IV 07/22/25 19:45 Acetaminophen 650 mg Q6HP PRN PO 07/22/25 19:45 Laboratory Results Laboratory Tests 07/23/25 04:48 Chemistry Test 07/22/25 18:30 07/23/25 04:48 Calcium Level 10.0 mg/dL (8.7-10.4) 9.2 mg/dL (8.7-10.4) Coagulation Test 07/23/25 04:48 Prothrombin Time 11.0 sec (9.3-11.8) Prothrombin Time INR 1.04 (0.9-1.15) Activated Partial Thromboplast Time 28.5 SEC (24.5-34.5) Assessment/Plan Assessment/Plan Right lower extremity DVT Bilateral lower extremity cellulitis Recent bilateral lower extremity jaimes Plan Lovenox IV cefepime and vancomycin Monitor closely Plan discussed with: Patient Date of Service: Jul 23, 2025 Billing Provider: MICHAEL CHIU MD Common Visit Codes: [id number] INP/OBS CARE(HIGH) MICHAEL CHIU MD Jul 23, 2025 13:16
[2025-07-24] MEDS ORDERED: CEPH500C PO (12:11)
[2025-07-24] MEDS ORDERED: APIX5TAB PO (12:11)
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
[2025-07-24 13:00] VITALS: BP 126/89; PULSE 96; RESP 17; TEMP 99.9; O2SAT 97
[2025-07-31] MEDS ORDERED: APIXABAN 5 MG TAB PO SCH (10:00)
== END 2025-07-24 14:00 | disposition home or self-care (01) | DRG 300 ==
LOC: ER 12:46 → OVERFLOW 19:38 → WEST WING 20:40
PROVIDERS: ADMIT Internal Medicine Geriatric Medicine; ATTEND Internal Medicine Geriatric Medicine
DX: I82.411 Acute embolism and thrombosis of right femoral vein (principal); L03.115 Cellulitis of right lower limb; L03.116 Cellulitis of left lower limb; T24.002A Burn of unspecified degree of unspecified site of left lower limb, except ankle and foot, initial encounter; T24.001A Burn of unspecified degree of unspecified site of right lower limb, except ankle and foot, initial encounter; Z79.1 Long term (current) use of non-steroidal anti-inflammatories (NSAID); Z79.899 Other long term (current) drug therapy; X08.8XXA Exposure to other specified smoke, fire and flames, initial encounter; Y93.89 Activity, other specified; Y92.89 Other specified places as the place of occurrence of the external cause; Y99.8 Other external cause status
CPT/HCPCS: 36415; 80048; 80202; 82565; 83605; 85025; 85610; 85730; 86803; 87040; 87340; 93970; G0378; J3490

== ENCOUNTER 2025-09-07 12:51 | Outpatient (CLI) | payer OTHER, MEDICAID ==
[~2025-09-07 12:51] MED LIST changes: +APIX5TAB PO; +CEPH500C PO; -IBUP-1456 PO; -MELO15TA29 PO; -NAPR-746 PO; -PRED20TA2 PO
[2025-09-07 13:35] LABS: Hematocrit 45.9 % (41.0-53.0); Hemoglobin 15.6 g/dL (13.5-17.5); Mean Corpuscular Hemoglobin 31.1 pg (28.0-32.0); Mean Corpuscular Volume 91.3 fL (80.0-100.0); Nucleated Red Blood Cells % 0.0 %
[2025-09-07 14:03] LABS: Prostate Specific Antigen 1.45 ng/mL (0.0-4.0)
[2025-09-07 14:05] LABS: Alanine Aminotransferase 29 U/L (7-40); Albumin 4.8 g/dL (3.2-4.8); Alkaline Phosphatase 95 U/L (46-116); Anion Gap 12 (5-15); BUN/Creatinine Ratio 7.4 (10.0-20.0); Bilirubin, Total 0.6 mg/dL (0.2-1.0); Blood Urea Nitrogen 10 mg/dL (9-23); Calcium 9.8 mg/dL (8.7-10.4); Carbon Dioxide 24 mmol/L (20-31); Chloride 106 mmol/L (98-107); Glucose 99 mg/dL (74-106); HDL Cholesterol 41 mg/dL (40-59); Potassium 4.1 mmol/L (3.5-5.1); Sodium 142 mmol/L (136-145); Total Protein 7.5 g/dL (5.7-8.2)
[2025-09-07 14:06] LABS: Cholesterol 281 mg/dL (< 200); Triglycerides 158 mg/dL (< 150)
[2025-09-07 14:08] LABS: Free T4 (Free Thyroxine) 1.24 ng/dL (0.89-1.76)
== END 2025-09-07 17:00 | disposition home or self-care (01) ==
LOC: LAB 12:51
PROVIDERS: ATTEND Family Medicine
DX: E55.9 Vitamin D deficiency, unspecified (principal); E53.8 Deficiency of other specified B group vitamins; Z00.00 Encounter for general adult medical examination without abnormal findings; Z68.35 Body mass index [BMI] 35.0-35.9, adult
CPT/HCPCS: 36415; 80053; 80061; 82306; 82607; 82746; 83036; 84153; 84439; 84443; 85025